=== PATIENT | female | born 1955 | race Caucasian/White ===

== ENCOUNTER 2019-12-15 08:22 | Day surgery (SDC) | payer OTHER ==
[~2019-12-15] VITALS: Ht 156.2 cm; Wt 72.6 kg
[2019-12-15] VITALS (9 sets, daily range): BP systolic 104–135; BP diastolic 54–87
[~2019-12-15 08:22] MED LIST: LEVO500T89 PO; METR-172 PO; NYST5ORA7 PO
[2019-12-15] MEDS ORDERED: FEXO1TAB8 PO (09:21)
[2019-12-15] MEDS ORDERED: L.AC1CAP6 PO (09:21)
[2019-12-15] MEDS ORDERED: SODIUM CHLORIDE 0.9% 1000ML 1,000 ML IV ONE (09:24)
[2019-12-15] MEDS ORDERED: LIDOCAINE HCL 1% 20 ML VIAL ONE (09:42)
[2019-12-15] MEDS ORDERED: PROPOFOL 10 MG/ML 20ML VIAL IV ONE ×2 (09:42→09:43)
[2019-12-15] MEDS ORDERED: SUCCINYLCHOLINE 200MG/10ML SYR ONE (09:42)
[2019-12-15] MEDS ORDERED: IOHEXOL-350 50ML VIAL IV ONE (09:49)
[2019-12-15] MEDS ORDERED: INDOMETHACIN 50 MG SUPP.RECT RC SCH (10:15)
[2019-12-15] MEDS ORDERED: MEPERIDINE-PF 25 MG/ML SYG ONE (10:47)
[2019-12-15] MEDS ORDERED: ONDANSETRON HCL 4 MG/2 ML VIAL ONE (10:48)
== END 2019-12-15 11:40 | disposition home or self-care (01) ==
LOC: DAH 08:22 → ENDO 08:22
PROVIDERS: ATTEND Internal Medicine Gastroenterology
DX: Z46.59 Encounter for fitting and adjustment of other gastrointestinal appliance and device (principal); R93.3 Abnormal findings on diagnostic imaging of other parts of digestive tract; K80.30 Calculus of bile duct with cholangitis, unspecified, without obstruction; Z85.3 Personal history of malignant neoplasm of breast; Z80.3 Family history of malignant neoplasm of breast; Z80.1 Family history of malignant neoplasm of trachea, bronchus and lung; Z88.0 Allergy status to penicillin; Z88.2 Allergy status to sulfonamides
CPT/HCPCS: 43275; 74330; A4215; A4221; A4222; A4223; A4335; A4606; A4663; C1769; C1773; J0330; J2175; J2405; J2704 ×2; J7030; Q9967

== ENCOUNTER 2019-12-18 09:28 | Inpatient (IN) | payer OTHER ==
[~2019-12-18] VITALS: Ht 154.9 cm; Wt 72.4 kg
[~2019-12-18 09:28] MED LIST changes: +FEXO1TAB8 PO; +L.AC1CAP6 PO; -LEVO500T89 PO; -METR-172 PO; -NYST5ORA7 PO
[2019-12-18] MEDS ORDERED: ONDANSETRON HCL 4 MG/2 ML VIAL ONE ×2 (10:26→11:48)
[2019-12-18] MEDS ORDERED: SODIUM CHLORIDE 0.9% 500ML 500 ML IV ONE (10:27)
[2019-12-18] MEDS ORDERED: FENTANYL CITRATE PF 50 MCG/1 ML 2ML VIAL ONE (10:27)
[2019-12-18 10:32] LABS: BASOPHILS % (AUTO) 0.3 % (0.0-5.0); EOSINOPHILS % (AUTO) 0.5 % (0.0-8.0); HEMATOCRIT 39.2 % (36-48); LYMPHOCYTES % (AUTO) 19.2 % (21.0-51.0); MEAN CORPUSCULAR HEMOGLOBIN 29.3 pg (27.0-33.0); MEAN CORPUSCULAR HGB CONC 34.2 g/dL (32.0-36.0); MEAN CORPUSCULAR VOLUME 85.6 fL (79-99); MONOCYTES % (AUTO) 5.6 % (3.0-13.0); NEUTROPHILS % (AUTO) 73.9 % (40.0-77.0); PLATELET COUNT (AUTO) 239 K/uL (130-400); RED BLOOD CELL COUNT(AUTO) 4.58 MIL/uL (4.00-5.50); RED CELL DISTRIBUTION WIDTH 11.9 % (11.0-15.5); WHITE BLOOD COUNT (AUTO) 11.4 K/uL (4.8-10.8)
[2019-12-18 10:34] LABS: APPEARANCE,URINE Clear (CLEAR); BILIRUBIN,URINE Negative (NEGATIVE); COLOR,URINE Yellow (YELLOW); GLUCOSE, URINE (UA) Negative (NEGATIVE); KETONES,URINE Negative (NEGATIVE); LEUKOCYTE ESTERASE ,URINE Trace (NEGATIVE); NITRATE,URINE Negative (NEGATIVE); OCCULT BLOOD,URINE Negative (NEGATIVE); PROTEIN,URINE Negative (NEGATIVE)
[2019-12-18 10:50] LABS: CREATININE 0.9 mg/dL (0.5-1.5); POTASSIUM 3.4 mmol/L (3.5-5.1)
[2019-12-18 10:57] LABS: ALBUMIN 3.6 g/dL (3.5-5.0); BILIRUBIN,DIRECT 0.5 mg/dL (0.0-0.3); BILIRUBIN,TOTAL 0.8 mg/dL (0.2-1.0); TOTAL PROTEIN, SERUM 7.6 g/dL (6.0-8.3)
[2019-12-18 10:58] LABS: BACTERIA,URINE Few /HPF (None Seen); SQUAMOUS EPITHELIAL CELL,UR 0-2 /HPF (0-2)
[2019-12-18 10:59] LABS: RBC,URINE 0-1 /HPF (0-1); WBC,URINE 0-1 /HPF (0-1)
[2019-12-18] MEDS ORDERED: MORPHINE SULFATE 4 MG/1ML SYG ONE ×2 (12:45→15:38)
[2019-12-18] MEDS ORDERED: HYDRALAZINE HCL 20 MG/ML VIAL IV PRN (15:00)
[2019-12-18] MEDS ORDERED: POTASSIUM CHLORIDE 10% ELIXIR 20 MEQ/15 ML UDCUP PO PRN ×2 (15:15→19:30)
[2019-12-18] MEDS ORDERED: LIDOCAINE HCL-MPF 1% 2ML VIAL IV PRN ×2 (15:15→19:30)
[2019-12-18] MEDS ORDERED: POTASSIUM CHLORIDE 20 MEQ ERTAB PO PRN (15:15)
[2019-12-18] MEDS ORDERED: KETOROLAC TROMETHAMINE 15MG/ML IM PRN (15:15)
[2019-12-18] MEDS ORDERED: POTASSIUM CHLORIDE 10MEQ/100ML 100 ML IV PRN (15:15)
[2019-12-18 15:34] LABS: HEMOGLOBIN A1C 5.5 % (4.0-6.0)
[2019-12-18] MEDS ORDERED: POTASSIUM CHLORIDE 20 MEQ ERTAB PO ONE (15:37)
[2019-12-18] MEDS ORDERED: SODIUM CHLORIDE 0.9% 1000ML 1,000 ML IV ONE (15:38)
[2019-12-18] MEDS ORDERED: ZOSYN 3.375GM+NS 50ML 50 ML IV ONE (15:38)
[2019-12-18 16:50] VITALS: BP 138/76
[2019-12-18] MEDS: ACETAMINOPHEN-CODEINE 300/30MG TAB PO PRN ×2 (18:10→21:42)
[2019-12-18 19:00] VITALS: BP 156/77
[2019-12-18] MEDS ORDERED: POTASSIUM CHLORIDE 20MEQ/100ML 100 ML IV PRN (19:30)
[2019-12-18] MEDS ORDERED: MAGNESIUM 2GM PREMIX 50ML 50 ML IV PRN (19:30)
[2019-12-18] MEDS: MORPHINE SULFATE 2 MG/ML 1ML SYG IV PRN (19:47)
[2019-12-18] MEDS: FAMOTIDINE/PF 20 MG/2 ML VIAL IV SCH (21:15)
[2019-12-18] MEDS: ZOSYN 3.375GM+NS 50ML 50 ML IV SCH (21:15)
[2019-12-18] MEDS: SODIUM CHLORIDE 0.9% 1000ML 1,000 ML IV SCH (21:45)
[2019-12-19] VITALS: BP 131/99
[2019-12-19] MEDS: ACETAMINOPHEN-CODEINE 300/30MG TAB PO PRN ×4 (01:26→16:24)
[2019-12-19 04:00] VITALS: BP 107/66
[2019-12-19] MEDS: ZOSYN 3.375GM+NS 50ML 50 ML IV SCH (04:16)
[2019-12-19] MEDS: SODIUM CHLORIDE 0.9% 1000ML 1,000 ML IV SCH ×3 (05:24→17:49)
[2019-12-19 05:46] LABS: BASOPHILS % (AUTO) 0.3 % (0.0-5.0); HEMATOCRIT 41.1 % (36-48); LYMPHOCYTES % (AUTO) 6.7 % (21.0-51.0); MEAN CORPUSCULAR HEMOGLOBIN 29.5 pg (27.0-33.0); MEAN CORPUSCULAR HGB CONC 33.8 g/dL (32.0-36.0); MEAN CORPUSCULAR VOLUME 87.3 fL (79-99); NEUTROPHILS % (AUTO) 89.2 % (40.0-77.0); PLATELET COUNT (AUTO) 252 K/uL (130-400); RED BLOOD CELL COUNT(AUTO) 4.71 MIL/uL (4.00-5.50); RED CELL DISTRIBUTION WIDTH 12.3 % (11.0-15.5); WHITE BLOOD COUNT (AUTO) 19.7 K/uL (4.8-10.8)
[2019-12-19 06:14] LABS: ALBUMIN 3.1 g/dL (3.5-5.0); BILIRUBIN,TOTAL 6.4 mg/dL (0.2-1.0); CREATININE 1.2 mg/dL (0.5-1.5); POTASSIUM 4.1 mmol/L (3.5-5.1); TOTAL PROTEIN, SERUM 7.1 g/dL (6.0-8.3)
[2019-12-19 08:31] VITALS: BP 109/57
[2019-12-19] MEDS: FAMOTIDINE/PF 20 MG/2 ML VIAL IV SCH ×2 (10:30→20:19)
[2019-12-19] MEDS: LEVOFLOXACIN 500 MG/D5W 100 ML 100 ML IV SCH (10:31)
[2019-12-19 11:57] VITALS: BP 129/57
[2019-12-19] MEDS: MORPHINE SULFATE 2 MG/ML 1ML SYG IV PRN ×2 (13:08→19:03)
[2019-12-19] MEDS: METRONIDAZOLE 500MG/100ML BAG 100 ML IV SCH ×2 (14:59→20:19)
[2019-12-19 17:45] VITALS: BP 138/69
[2019-12-19 19:00] VITALS: BP 128/72
[2019-12-20] VITALS (16 sets, daily range): BP systolic 128–160; BP diastolic 64–98
[2019-12-20] MEDS: MORPHINE SULFATE 2 MG/ML 1ML SYG IV PRN (03:19)
[2019-12-20] MEDS: SODIUM CHLORIDE 0.9% 1000ML 1,000 ML IV SCH (03:24)
[2019-12-20] MEDS: METRONIDAZOLE 500MG/100ML BAG 100 ML IV SCH ×3 (04:52→21:06)
[2019-12-20 06:23] LABS: BASOPHILS % (AUTO) 0.2 % (0.0-5.0); HEMATOCRIT 38.6 % (36-48); LYMPHOCYTES % (AUTO) 6.2 % (21.0-51.0); MEAN CORPUSCULAR HEMOGLOBIN 28.8 pg (27.0-33.0); MEAN CORPUSCULAR HGB CONC 32.1 g/dL (32.0-36.0); MEAN CORPUSCULAR VOLUME 89.8 fL (79-99); MONOCYTES % (AUTO) 4.6 % (3.0-13.0); PLATELET COUNT (AUTO) 196 K/uL (130-400); RED CELL DISTRIBUTION WIDTH 12.7 % (11.0-15.5); WHITE BLOOD COUNT (AUTO) 16.9 K/uL (4.8-10.8)
[2019-12-20 06:39] LABS: ALBUMIN 2.8 g/dL (3.5-5.0); BILIRUBIN,TOTAL 7.3 mg/dL (0.2-1.0); CREATININE 0.8 mg/dL (0.5-1.5); MAGNESIUM 1.9 mg/dL (1.80-2.40); POTASSIUM 3.5 mmol/L (3.5-5.1)
[2019-12-20] MEDS ORDERED: IOHEXOL-350 50ML VIAL IV ONE (07:38)
[2019-12-20] MEDS ORDERED: INDOMETHACIN 50 MG SUPP.RECT RC SCH (08:15)
[2019-12-20] MEDS ORDERED: LIDOCAINE PF 2% 5ML ABBOJECT ONE (08:24)
[2019-12-20] MEDS ORDERED: ONDANSETRON HCL 4 MG/2 ML VIAL ONE (08:25)
[2019-12-20] MEDS ORDERED: NEOSTIGMINE 5MG/5ML SYR IV ONE (08:25)
[2019-12-20] MEDS ORDERED: GLYCOPYRROLATE 1 MG/5 ML SYRINGE ONE (08:25)
[2019-12-20] MEDS ORDERED: PROPOFOL 10 MG/ML 20ML VIAL IV ONE (08:25)
[2019-12-20] MEDS ORDERED: ROCURONIUM 10MG/1ML SYR 10 MG/ML ML ONE (08:25)
[2019-12-20] MEDS ORDERED: FENTANYL CITRATE PF 50 MCG/1 ML 2ML VIAL ONE (08:26)
[2019-12-20] MEDS: LEVOFLOXACIN 500 MG/D5W 100 ML 100 ML IV SCH (10:41)
[2019-12-20] MEDS: FAMOTIDINE/PF 20 MG/2 ML VIAL IV SCH ×2 (10:41→21:06)
[2019-12-20] MEDS: ACETAMINOPHEN-CODEINE 300/30MG TAB PO PRN (10:50)
[2019-12-20] MEDS ORDERED: MORPHINE SULFATE 2 MG/ML 1ML SYG IV PRN (11:15)
[2019-12-20] MEDS ORDERED: HYDROCODONE/ACETAMINOPHEN 5/325 MG TAB PO PRN (11:15)
[2019-12-20] MEDS ORDERED: TRAMADOL HCL 50 MG TABLET PO SCH (11:15)
[2019-12-20] MEDS ORDERED: TRAMADOL HCL 50 MG TABLET ONE (11:59)
[2019-12-20 12:24] LABS: APPEARANCE,URINE Clear (CLEAR); BILIRUBIN,URINE Moderate (NEGATIVE); COLOR,URINE Dark Yellow (YELLOW); GLUCOSE, URINE (UA) Negative (NEGATIVE); KETONES,URINE >=80 mg/dL (NEGATIVE); LEUKOCYTE ESTERASE ,URINE Trace (NEGATIVE); NITRATE,URINE Negative (NEGATIVE); OCCULT BLOOD,URINE Moderate (NEGATIVE); PH,URINE 5.5 (5.0-8.0); PROTEIN,URINE Negative (NEGATIVE)
[2019-12-20 12:43] LABS: BACTERIA,URINE Rare /HPF (None Seen); SQUAMOUS EPITHELIAL CELL,UR Rare /HPF (0-2); WBC,URINE 0-1 /HPF (0-1)
[2019-12-20] MEDS: TRAMADOL HCL 50 MG TABLET PO PRN (18:49)
[2019-12-21 00:47] VITALS: BP 120/73
[2019-12-21] MEDS: TRAMADOL HCL 50 MG TABLET PO PRN ×2 (03:02→09:20)
[2019-12-21 03:23] VITALS: BP 140/74
[2019-12-21 04:05] LABS: HEMATOCRIT 33.1 % (36-48); MEAN CORPUSCULAR HEMOGLOBIN 29.7 pg (27.0-33.0); MEAN CORPUSCULAR HGB CONC 33.5 g/dL (32.0-36.0); MEAN CORPUSCULAR VOLUME 88.5 fL (79-99); PLATELET COUNT (AUTO) 191 K/uL (130-400); RED BLOOD CELL COUNT(AUTO) 3.74 MIL/uL (4.00-5.50); RED CELL DISTRIBUTION WIDTH 12.4 % (11.0-15.5); WHITE BLOOD COUNT (AUTO) 10.8 K/uL (4.8-10.8)
[2019-12-21 04:34] LABS: ALBUMIN 2.3 g/dL (3.5-5.0); BILIRUBIN,TOTAL 2.6 mg/dL (0.2-1.0); CREATININE 0.7 mg/dL (0.5-1.5); POTASSIUM 3.3 mmol/L (3.5-5.1); TOTAL PROTEIN, SERUM 6.4 g/dL (6.0-8.3)
[2019-12-21 04:58] LABS: BAND NEUTROPHILS % (MANUAL) 4 % (0-2); LYMPHOCYTES % (MANUAL) 11 % (22-44); MAN.DIFF COMMENT-IMPRESSION MANUAL DIFFERENTIAL; MONOCYTES % (MANUAL) 6 % (2-9); REACTIVE LYMPHOCYTES 4 % (0-0); SEGMENTED NEUTROPHILS % 75 % (40-70)
[2019-12-21] MEDS: METRONIDAZOLE 500MG/100ML BAG 100 ML IV SCH ×3 (06:15→21:48)
[2019-12-21 07:30] VITALS: BP 134/75
[2019-12-21] MEDS: SODIUM CHLORIDE 0.9% 1000ML 1,000 ML IV SCH ×2 (08:23→21:43)
[2019-12-21] MEDS: POTASSIUM CHLORIDE 20 MEQ ERTAB PO PRN (08:59)
[2019-12-21] MEDS: FAMOTIDINE/PF 20 MG/2 ML VIAL IV SCH ×2 (08:59→21:51)
[2019-12-21] MEDS: LEVOFLOXACIN 500 MG/D5W 100 ML 100 ML IV SCH (08:59)
[2019-12-21 11:00] VITALS: BP 151/77
[2019-12-21] MEDS ORDERED: ONDANSETRON HCL 4 MG/2 ML VIAL ONE ×2 (11:51→18:19)
[2019-12-21 16:00] VITALS: BP 142/77
[2019-12-21 20:38] VITALS: BP 145/75
[2019-12-21] MEDS: NYSTATIN 100000 UNIT/ML 5ML UDCUP PO SCH (21:48)
[2019-12-21] MEDS: ONDANSETRON HCL 4 MG/2 ML VIAL IVP PRN (21:53)
[2019-12-22 00:18] VITALS: BP 143/76
[2019-12-22 04:00] VITALS: BP 151/80
[2019-12-22 05:35] LABS: BASOPHILS % (AUTO) 0.4 % (0.0-5.0); EOSINOPHILS % (AUTO) 0.5 % (0.0-8.0); HEMATOCRIT 34.7 % (36-48); LYMPHOCYTES % (AUTO) 21.2 % (21.0-51.0); MEAN CORPUSCULAR HEMOGLOBIN 28.9 pg (27.0-33.0); MEAN CORPUSCULAR HGB CONC 33.4 g/dL (32.0-36.0); MEAN CORPUSCULAR VOLUME 86.5 fL (79-99); MONOCYTES % (AUTO) 7.4 % (3.0-13.0); NEUTROPHILS % (AUTO) 69.4 % (40.0-77.0); PLATELET COUNT (AUTO) 274 K/uL (130-400); RED BLOOD CELL COUNT(AUTO) 4.01 MIL/uL (4.00-5.50); RED CELL DISTRIBUTION WIDTH 12.4 % (11.0-15.5); WHITE BLOOD COUNT (AUTO) 10.2 K/uL (4.8-10.8)
[2019-12-22 05:57] LABS: ALBUMIN 2.3 g/dL (3.5-5.0); BILIRUBIN,TOTAL 1.4 mg/dL (0.2-1.0); CREATININE 0.7 mg/dL (0.5-1.5); POTASSIUM 3.3 mmol/L (3.5-5.1); TOTAL PROTEIN, SERUM 6.6 g/dL (6.0-8.3)
[2019-12-22] MEDS: ONDANSETRON HCL 4 MG/2 ML VIAL IVP PRN (06:20)
[2019-12-22] MEDS: METRONIDAZOLE 500MG/100ML BAG 100 ML IV SCH ×3 (06:20→21:34)
[2019-12-22 08:00] VITALS: BP 159/97
[2019-12-22] MEDS: NYSTATIN 100000 UNIT/ML 5ML UDCUP PO SCH ×4 (09:20→21:34)
[2019-12-22] MEDS: FAMOTIDINE/PF 20 MG/2 ML VIAL IV SCH ×2 (09:20→21:34)
[2019-12-22] MEDS: LEVOFLOXACIN 500 MG/D5W 100 ML 100 ML IV SCH (09:20)
[2019-12-22] MEDS: SODIUM CHLORIDE 0.9% 1000ML 1,000 ML IV SCH (11:03)
[2019-12-22 12:00] VITALS: BP 151/80
[2019-12-22] MEDS: TRAMADOL HCL 50 MG TABLET PO PRN ×2 (13:04→21:47)
[2019-12-22 16:00] VITALS: BP 158/80
[2019-12-22] MEDS: POTASSIUM CHLORIDE 20 MEQ ERTAB PO PRN ×2 (17:10→21:52)
[2019-12-22 19:00] VITALS: BP 162/92
[2019-12-23] VITALS (24 sets, daily range): BP systolic 119–164; BP diastolic 61–89
[2019-12-23] MEDS: SODIUM CHLORIDE 0.9% 1000ML 1,000 ML IV SCH ×2 (01:38→13:43)
[2019-12-23 04:17] LABS: BASOPHILS % (AUTO) 0.5 % (0.0-5.0); EOSINOPHILS % (AUTO) 0.7 % (0.0-8.0); HEMATOCRIT 34.6 % (36-48); LYMPHOCYTES % (AUTO) 22.4 % (21.0-51.0); MEAN CORPUSCULAR HEMOGLOBIN 29.5 pg (27.0-33.0); MEAN CORPUSCULAR HGB CONC 33.8 g/dL (32.0-36.0); MEAN CORPUSCULAR VOLUME 87.2 fL (79-99); MONOCYTES % (AUTO) 10.7 % (3.0-13.0); NEUTROPHILS % (AUTO) 63.9 % (40.0-77.0); PLATELET COUNT (AUTO) 311 K/uL (130-400); RED BLOOD CELL COUNT(AUTO) 3.97 MIL/uL (4.00-5.50); RED CELL DISTRIBUTION WIDTH 12.2 % (11.0-15.5)
[2019-12-23 04:40] LABS: ALBUMIN 2.4 g/dL (3.5-5.0); BILIRUBIN,TOTAL 1.2 mg/dL (0.2-1.0); CREATININE 0.6 mg/dL (0.5-1.5); POTASSIUM 3.2 mmol/L (3.5-5.1); TOTAL PROTEIN, SERUM 6.3 g/dL (6.0-8.3)
[2019-12-23] MEDS: METRONIDAZOLE 500MG/100ML BAG 100 ML IV SCH ×3 (06:57→19:29)
[2019-12-23] MEDS: FAMOTIDINE/PF 20 MG/2 ML VIAL IV SCH ×2 (09:00→19:28)
[2019-12-23] MEDS ORDERED: INDOMETHACIN 50 MG SUPP.RECT RC SCH (09:00)
[2019-12-23] MEDS: NYSTATIN 100000 UNIT/ML 5ML UDCUP PO SCH ×4 (09:00→19:28)
[2019-12-23] MEDS ORDERED: IOHEXOL-350 50ML VIAL IV ONE (09:34)
[2019-12-23] MEDS ORDERED: PROPOFOL 10 MG/ML 20ML VIAL IV ONE ×2 (10:05)
[2019-12-23] MEDS ORDERED: NEOSTIGMINE 5MG/5ML SYR IV ONE (10:07)
[2019-12-23] MEDS ORDERED: GLYCOPYRROLATE 1 MG/5 ML SYRINGE ONE (10:07)
[2019-12-23] MEDS ORDERED: ROCURONIUM 10MG/1ML SYR 10 MG/ML ML ONE (10:07)
[2019-12-23] MEDS ORDERED: ESMOLOL HCL 10 MG/ML 10 ML VIAL ONE (10:48)
[2019-12-23] MEDS: LEVOFLOXACIN 500 MG/D5W 100 ML 100 ML IV SCH (14:54)
[2019-12-23] MEDS: TRAMADOL HCL 50 MG TABLET PO PRN (22:33)
[2019-12-24] MEDS: SODIUM CHLORIDE 0.9% 1000ML 1,000 ML IV SCH ×2 (02:49→13:32)
[2019-12-24 03:39] VITALS: BP 145/77
[2019-12-24] MEDS: METRONIDAZOLE 500MG/100ML BAG 100 ML IV SCH ×3 (04:23→19:48)
[2019-12-24 04:26] LABS: BASOPHILS % (AUTO) 0.5 % (0.0-5.0); EOSINOPHILS % (AUTO) 0.6 % (0.0-8.0); LYMPHOCYTES % (AUTO) 23.4 % (21.0-51.0); MEAN CORPUSCULAR HEMOGLOBIN 28.8 pg (27.0-33.0); MEAN CORPUSCULAR HGB CONC 33.9 g/dL (32.0-36.0); MEAN CORPUSCULAR VOLUME 84.9 fL (79-99); MONOCYTES % (AUTO) 9.9 % (3.0-13.0); NEUTROPHILS % (AUTO) 62.2 % (40.0-77.0); PLATELET COUNT (AUTO) 341 K/uL (130-400); RED BLOOD CELL COUNT(AUTO) 4.24 MIL/uL (4.00-5.50); RED CELL DISTRIBUTION WIDTH 12.2 % (11.0-15.5); WHITE BLOOD COUNT (AUTO) 10.1 K/uL (4.8-10.8)
[2019-12-24 04:43] LABS: ALBUMIN 2.3 g/dL (3.5-5.0); BILIRUBIN,TOTAL 3.5 mg/dL (0.2-1.0); CREATININE 0.6 mg/dL (0.5-1.5); POTASSIUM 3.3 mmol/L (3.5-5.1); TOTAL PROTEIN, SERUM 6.4 g/dL (6.0-8.3)
[2019-12-24] MEDS: POTASSIUM CHLORIDE 20 MEQ ERTAB PO PRN ×3 (05:00→19:48)
[2019-12-24 08:00] VITALS: BP 143/79
[2019-12-24] MEDS: LEVOFLOXACIN 500 MG/D5W 100 ML 100 ML IV SCH (09:27)
[2019-12-24] MEDS: FAMOTIDINE/PF 20 MG/2 ML VIAL IV SCH ×2 (09:28→19:47)
[2019-12-24] MEDS: NYSTATIN 100000 UNIT/ML 5ML UDCUP PO SCH ×4 (09:28→19:47)
[2019-12-24 11:32] VITALS: BP 144/78
[2019-12-24 16:00] VITALS: BP 150/87
[2019-12-24] MEDS: TRAMADOL HCL 50 MG TABLET PO PRN (19:49)
[2019-12-24 20:12] VITALS: BP 158/91
[2019-12-24 23:36] VITALS: BP 131/78
[2019-12-25 04:26] VITALS: BP 130/79
[2019-12-25 05:26] LABS: BASOPHILS % (AUTO) 0.5 % (0.0-5.0); EOSINOPHILS % (AUTO) 0.8 % (0.0-8.0); HEMATOCRIT 36.3 % (36-48); LYMPHOCYTES % (AUTO) 21.5 % (21.0-51.0); MEAN CORPUSCULAR HEMOGLOBIN 29.5 pg (27.0-33.0); MEAN CORPUSCULAR HGB CONC 34.4 g/dL (32.0-36.0); MEAN CORPUSCULAR VOLUME 85.6 fL (79-99); MONOCYTES % (AUTO) 7.7 % (3.0-13.0); NEUTROPHILS % (AUTO) 65.9 % (40.0-77.0); PLATELET COUNT (AUTO) 394 K/uL (130-400); RED BLOOD CELL COUNT(AUTO) 4.24 MIL/uL (4.00-5.50); RED CELL DISTRIBUTION WIDTH 12.4 % (11.0-15.5); WHITE BLOOD COUNT (AUTO) 13.6 K/uL (4.8-10.8)
[2019-12-25 05:46] LABS: ALBUMIN 2.6 g/dL (3.5-5.0); BILIRUBIN,DIRECT 0.8 mg/dL (0.0-0.3); BILIRUBIN,TOTAL 1.3 mg/dL (0.2-1.0); CREATININE 0.6 mg/dL (0.5-1.5); POTASSIUM 3.5 mmol/L (3.5-5.1); TOTAL PROTEIN, SERUM 6.7 g/dL (6.0-8.3)
[2019-12-25] MEDS: METRONIDAZOLE 500MG/100ML BAG 100 ML IV SCH ×2 (05:50→15:34)
[2019-12-25] MEDS: SODIUM CHLORIDE 0.9% 1000ML 1,000 ML IV SCH (05:50)
[2019-12-25] MEDS: TRAMADOL HCL 50 MG TABLET PO PRN (05:59)
[2019-12-25 08:23] VITALS: BP 118/71
[2019-12-25 09:46] LABS: BASOPHILS % (AUTO) 0.4 % (0.0-5.0); EOSINOPHILS % (AUTO) 0.8 % (0.0-8.0); HEMATOCRIT 34.6 % (36-48); LYMPHOCYTES % (AUTO) 20.8 % (21.0-51.0); MEAN CORPUSCULAR HEMOGLOBIN 29.7 pg (27.0-33.0); MEAN CORPUSCULAR HGB CONC 34.4 g/dL (32.0-36.0); MEAN CORPUSCULAR VOLUME 86.3 fL (79-99); MONOCYTES % (AUTO) 7.7 % (3.0-13.0); NEUTROPHILS % (AUTO) 67.6 % (40.0-77.0); PLATELET COUNT (AUTO) 380 K/uL (130-400); RED BLOOD CELL COUNT(AUTO) 4.01 MIL/uL (4.00-5.50); RED CELL DISTRIBUTION WIDTH 12.6 % (11.0-15.5); WHITE BLOOD COUNT (AUTO) 12.4 K/uL (4.8-10.8)
[2019-12-25] MEDS: LEVOFLOXACIN 500 MG/D5W 100 ML 100 ML IV SCH (10:03)
[2019-12-25] MEDS: NYSTATIN 100000 UNIT/ML 5ML UDCUP PO SCH ×2 (10:03→15:34)
[2019-12-25] MEDS ORDERED: PANT40TA PO (15:19)
[2019-12-25] MEDS ORDERED: LEVO500T89 PO (15:19)
[2019-12-25] MEDS ORDERED: METR-152 PO (15:19)
[2019-12-25 17:05] VITALS: BP 147/78
== END 2019-12-25 17:50 | disposition home or self-care (01) | DRG 444 ==
LOC: EDH 09:28 → EDHIP 14:54 → 3BH 16:20
PROVIDERS: ADMIT Internal Medicine; ATTEND Internal Medicine
PROC: 0F798DZ Dilation of Common Bile Duct with Intraluminal Device, Via Natural or Artificial Opening Endoscopic (ICD-10-PCS; principal; 2019-12-20)
PROC: BF111ZZ Fluoroscopy of Biliary and Pancreatic Ducts using Low Osmolar Contrast (ICD-10-PCS; 2019-12-20)
PROC: 0FC98ZZ Extirpation of Matter from Common Bile Duct, Via Natural or Artificial Opening Endoscopic (ICD-10-PCS; 2019-12-23)
PROC: BF111ZZ Fluoroscopy of Biliary and Pancreatic Ducts using Low Osmolar Contrast (ICD-10-PCS; 2019-12-23)
PROC: 0FPB8DZ Removal of Intraluminal Device from Hepatobiliary Duct, Via Natural or Artificial Opening Endoscopic (ICD-10-PCS; 2019-12-23)
DX: K80.33 Calculus of bile duct with acute cholangitis with obstruction (principal); K85.90 Acute pancreatitis without necrosis or infection, unspecified; Z80.3 Family history of malignant neoplasm of breast; K75.89 Other specified inflammatory liver diseases; E87.6 Hypokalemia; D72.825 Bandemia; E86.1 Hypovolemia; Z88.0 Allergy status to penicillin; Z88.2 Allergy status to sulfonamides; Z88.8 Allergy status to other drugs, medicaments and biological substances; Z90.49 Acquired absence of other specified parts of digestive tract; Z46.59 Encounter for fitting and adjustment of other gastrointestinal appliance and device; Z83.6 Family history of other diseases of the respiratory system
CPT/HCPCS: 36415; 43238; 43249; 43262; 43273; 43274; 43275; 71045; 74176; 74181; 74328; 74330; 76700; 80048; 80053; 80076; 81001; 82248; 82550; 83036; 83690; 83735; 84484; 85025; 87088; 93005; A4606; C1769; C1773; G0378; J0330; J0360; J1956; J2001; J2175; J2270; J2405; J2543; J2704; J2710; J3010; J3475; J3480; J3490; J7030; J7040; Q9967